=== PATIENT | male | born 1945 | race Caucasian/White ===

== ENCOUNTER 2018-12-27 10:35 | Outpatient (CLI) | payer MEDICARE, OTHER, SELFPAY ==
--- NOTE | 2018-12-27 11:10 | DI.RAD_ITS ---
SYMPTOM/DIAGNOSIS: BILAT KNEE PAIN, M25.561 RIGHT KNEE: There is minimal spurring at the articular aspect of the patella. The femoral tibial joint spaces are well maintained. A small cyst is seen in the proximal fibula. IMPRESSION: Mild patellofemoral degenerative changes. LEFT KNEE: There is moderate narrowing of the lateral femoral tibial joint space and mild to moderate alexi-articular spurring. There is mild spurring at the articular aspect of the patella. Bone island is seen in the proximal tibia. IMPRESSION: Moderate degenerative changes of the lateral femoral tibial joint.
== END 2018-12-27 10:55 ==
LOC: NCHCO 10:41 → DI 10:43
PROVIDERS: PCP Family Medicine; Visit Provider Family Medicine
DX: M25.561 Pain in right knee (principal); M25.562 Pain in left knee; M17.0 Bilateral primary osteoarthritis of knee; M89.8X6 Other specified disorders of bone, lower leg
CPT/HCPCS: 73562

== ENCOUNTER 2019-03-09 10:01 | Outpatient (REF) | payer MEDICARE, OTHER, SELFPAY ==
[2019-03-09 13:19] LABS: Anion Gap 6.4 mmol/L (3-11); BUN 18 mg/dL (7-18); CO2 29.6 mmol/L (21.0-32.0); CREATININE 1.12 mg/dL (0.70-1.30); Calcium 9.2 mg/dL (8.5-10.1); Chloride 105 mmol/L (98-107); Glucose 90 mg/dL (70-100); Potassium 4.3 mmol/L (3.5-5.1); Sodium 141 mmol/L (136-145)
== END 2019-03-09 10:21 ==
LOC: NCHCN 10:01
PROVIDERS: PCP Family Medicine; Visit Provider Family Medicine
DX: I10 Essential (primary) hypertension (principal); R73.09 Other abnormal glucose
CPT/HCPCS: 80048

== ENCOUNTER → 2019-05-20 10:30 | Outpatient (BNVA) | payer MEDICARE, OTHER, SELFPAY | PROVIDERS: PCP Family Medicine; Referring Provider Family Medicine; Visit Provider Physical Therapy Assistant | DX: Z12.11 Encounter for screening for malignant neoplasm of colon (principal); Z86.010 Personal history of colon polyps ==

== ENCOUNTER 2019-06-03 11:09 | Day surgery (SDC) | payer MEDICARE, OTHER, SELFPAY ==
[2019-06-03 11:24] VITALS: BP 109/73; PULSE 66; RESP 18; TEMP 36.5; O2SAT 98
[2019-06-03] MEDS: Lactated Ringers 1,000 ML 80 ML IV (11:36)
--- NOTE | 2019-06-03 12:24 | W.PM.DSUDISC ---
Discharge Plan Disposition Patient Disposition: HOME Condition: Good Discharge Details Attending Provider: Ernestina Hopson Primary Care Provider: Otto Lopez Home Meds and New Rx's Prescriptions: Continued enalapril maleate 20 mg tablet 20 mg PO BID RF: 0 atorvastatin 40 mg tablet 40 mg PO QHS RF: 0 amlodipine 10 mg tablet 10 mg PO DAILY RF: 0 furosemide 20 mg tablet 20 mg PO DAILY RF: 0 Discontinued polyethylene glycol 3350 17 gram/dose powder 238 g PO ONCE Qty: 238 RF: 0 bisacodyl [Dulcolax (bisacodyl)] 5 mg tablet,delayed release (DR/EC) 5 mg PO ONCE Qty: 4 RF: 0 Discharge Instructions Additional Instructions: Your colonoscopy showed diverticulosis. Make sure to take in 30gm of fiber a day. No polyps were found. Plan for a colonoscopy in 5 years due a history of polyps on your prior scope. Stand Alone Forms: Colonoscopy Post Instructions, Diego Jones (DSU) Activity:: Activity as Tolerated Diet:: As Tolerated Discharge Orders Discharge Orders: Discharge Order (Routine); Ordered 06/03/19 Ordered By: Ernestina Hopson DS: Diagnosis Discharge Diagnosis (1) Diverticulosis: Status: Acute
[2019-06-03 13:00] VITALS: BP 93/67; PULSE 72; RESP 18; TEMP 36; O2SAT 95
--- NOTE | 2019-06-03 13:03 | COLE_ITS ---
DATE OF PROCEDURE: June 03, 2019 PREOPERATIVE DIAGNOSIS: History of colon polyps. POSTOPERATIVE DIAGNOSIS: Diverticulosis. PROCEDURE: Colonoscopy. SURGEON: Ernestina Hopson M.D. ANESTHESIA: General. INDICATIONS: This is a 73-year-old man whose colonoscopy three years ago showed polyps. He is asymp tomatic and has no family history of colon cancer. PROCEDURE: He was placed in the left Perez' position. Propofol was titrated to sedation. Digital re ctal examination revealed no abnormalities. The scope was advanced to the cecum with a small amount of abdominal pressure required. The ileocecal valve and appendiceal orifice were clearly identified. The scope was slowly withdrawn with no abnormalities seen within the ascending, transverse, descend ing, sigmoid colon or colon, including on retroflex view, with the exception of diverticulosis noted throughout the colon. He tolerated the procedure well and was stable to recovery. He will need a c olonoscopy again in five years due to his history of polyps. cc: Otto Lopez M.D.
== END 2019-06-03 13:22 | disposition home or self-care (01) ==
PROVIDERS: PCP Family Medicine; Visit Provider Surgery
PROC: 0DJD8ZZ Inspection of Lower Intestinal Tract, Via Natural or Artificial Opening Endoscopic (ICD-10-PCS; CPT 45378; principal; 2019-06-03 12:15)
DX: Z12.11 Encounter for screening for malignant neoplasm of colon (principal); K57.30 Diverticulosis of large intestine without perforation or abscess without bleeding; Z86.010 Personal history of colon polyps; I10 Essential (primary) hypertension
CPT/HCPCS: G0121

== ENCOUNTER 2019-12-27 12:38 | Outpatient (REF) | payer MEDICARE, OTHER, SELFPAY ==
[2019-12-27 14:56] LABS: Anion Gap 6.4 mmol/L (3-11); BUN 18 mg/dL (7-18); CO2 31.6 mmol/L (21.0-32.0); CREATININE 1.05 mg/dL (0.70-1.30); Calcium 9.1 mg/dL (8.5-10.1); Chloride 104 mmol/L (98-107); Glucose 104 mg/dL (74-106); Sodium 142 mmol/L (136-145)
[2019-12-27 15:11] LABS: Hemoglobin A1C 5.7 % (3.8-5.6)
[2019-12-28 12:35] LABS: PSA, Diagnostic 3.4 ng/mL (0.0-6.5)
== END 2019-12-27 12:58 ==
LOC: NCHCN 12:38
PROVIDERS: PCP Family Medicine; Visit Provider Family Medicine
DX: R73.09 Other abnormal glucose (principal); N40.1 Benign prostatic hyperplasia with lower urinary tract symptoms; R39.2 Extrarenal uremia; R39.9 Unspecified symptoms and signs involving the genitourinary system
CPT/HCPCS: 80048; 83036; 84153

== ENCOUNTER 2020-08-21 01:23 | Outpatient (CLI) | payer MEDICARE, OTHER, SELFPAY ==
[2020-08-21 14:52] LABS: BUN 24 mg/dL (7-18); Chloride 104 mmol/L (98-107); Estimated GFR 48.09 (mL/min/1.73m2); Glucose 94 mg/dL (74-106); Potassium 4.5 mmol/L (3.5-5.1); Sodium 140 mmol/L (136-145)
[2020-08-21 14:58] LABS: CREATININE 1.44 mg/dL (0.70-1.30)
[2020-08-21 14:59] LABS: Hemoglobin A1C 5.6 % (<5.7)
--- NOTE | 2020-08-21 15:15 | DI.MRI_ITS ---
EXAM: MR ORBIT FACIAL NECK WO/W CLINICAL HISTORY: NEUROPATHIC TYPE PAIN,? LESION RT MANDIBLE,R51,R68.84 TECHNIQUE: Multiplanar multisequence MRI was performed. CONTRAST MATERIAL: IV Contrast: 18 mL of Magnevist contrast administered. COMPARISON: No exams were available for comparison FINDINGS: ORBITS: The anterior and posterior chambers of the globes are intact. The retrobulbar fat is unremark able. Extraocular muscles are unremarkable. OPTIC NERVES: The intracranial and extracranial portions of the optic nerves are within normal limits . Optic chiasm is within normal limits. No MRI evidence of optic neuritis identified.. No abnormality is noted in the mandible. Degenerative changes are seen in the cervical spine. Parotids/submandibular/thyroid gland: Normal. Lymphadenopathy: None. Soft tissues: The floor the mouth is unremarkable. The epiglottis and vocal cords are within normal limits. The visualized portions of the brain show no abnormal enhancement. There is mild atrophy and scatter ed high signal foci in the white matter consistent with small vessel disease. IMPRESSION: No abnormality is identified in the mandible. DATA REPOSITORY:
[2020-08-21] MEDS: Gadoterate meglumine 20 ML VIAL 18 ML IVP (15:29)
[2020-08-21 23:04] LABS: PSA, Diagnostic 3.4 ng/mL (0.0-6.5)
== END 2020-08-21 01:43 ==
PROVIDERS: PCP Family Medicine; Visit Provider Otolaryngology Otolaryngology/Facial Plastic Surgery
DX: R73.09 Other abnormal glucose (principal); R39.9 Unspecified symptoms and signs involving the genitourinary system; I10 Essential (primary) hypertension; Z13.89 Encounter for screening for other disorder; R51 Headache; R68.84 Jaw pain
CPT/HCPCS: 80048; 70543; 83036; 84153

== ENCOUNTER 2020-09-18 13:02 | Outpatient (REF) | payer MEDICARE, OTHER, SELFPAY ==
[2020-09-18 18:42] LABS: Anion Gap 5.7 mmol/L (3-11); BUN 13 mg/dL (7-18); CO2 32.3 mmol/L (21.0-32.0); Calcium 9.4 mg/dL (8.5-10.1); Chloride 104 mmol/L (98-107); Glucose 103 mg/dL (74-106); Potassium 4.5 mmol/L (3.5-5.1); Sodium 142 mmol/L (136-145)
== END 2020-09-18 13:22 ==
LOC: NCHCN 13:02
PROVIDERS: PCP Family Medicine; Visit Provider Family Medicine
DX: N28.9 Disorder of kidney and ureter, unspecified (principal)
CPT/HCPCS: 80048

== ENCOUNTER 2021-08-22 11:39 | Emergency (ER) | payer MEDICARE, OTHER, SELFPAY ==
--- NOTE | 2021-08-22 11:30 | RT.EKG_ITS ---
APPROVED REPORT Exam: Resting ECG Reason for Exam: chest pain Patient Location: E HR:48 bpm ECG Measurements Heart Rate 48 AXIS DE 201 P 66 QRSd 108 QRS -5 QT 456 T 24 QTc 410 Conclusion Sinus bradycardia...rate< 60
--- NOTE | 2021-08-22 11:52 | ED.GENADUL_ITS ---
Discharge Plan Disposition Patient Disposition: HOME Condition: Stable Discharge Details Clinical Impression: Foot pain, right, Chest pain, Elevated lipase Primary Care Provider: Otto Lopez ED Provider: Edison Mcdonald Home Meds and New Rx's Prescriptions: Continued enalapril maleate 20 mg tablet 20 mg PO BID RF: 0 atorvastatin 40 mg tablet 40 mg PO QHS RF: 0 amlodipine 10 mg tablet 10 mg PO DAILY RF: 0 furosemide 20 mg tablet 20 mg PO DAILY RF: 0 Discharge Instructions Additional Instructions: your blood work and ekg did not show any concerning findings related to your heart at this time your cat scan showed a small lung nodule which you likely have had for years, but you should let your primary care provider know of this when you follow up with them as you will likely need to have imaging in the future to monitor this you had a mild increase in your lipase which measures pancreas inflammation, sometimes alcohol can cause this if you feel more ill, have worsening pain or persistent vomit return to the emergency department Medical Decision Making 75 yo male with hx of htn, hld, who comes in with 3 weeks of intermittent left sided chest pain, states he last had the pain 5 days ago and denies pain now. He states the pain will last a few minutes when he gets it, is not worsened or brought on my exertion, and denies radiation of pain. He also notes some shortness of breath, cough and feels congested, denies fevers. He is in no distress on exam speaking in full sentences. HE has no chest wall or abdominal tenderness, clear lungs, no jvd, no calf tenderness, no pitting edema. Symptoms seem atypical for acs, ekg shows sinus bradycardia no acute ischemic findings. Will obtain troponin. Given his cough/shortness of breath along with the pain will obtain cta to evaluate for pe and pneumonia vs pneumothorax. No tearing back pain so doubt dissection. He also notes he has had a painful area on his right plantar foot, denies known trauma but he states it feels as though there is a piece of glass in his foot as it is sharp.He has a 0.5cm flat black area on mid plantar surface with no breaks in the skin and is consistent with likely benign nevus but will xray to evaluate for other pathology. No palpable foreign body on exam labs unremarkable other than mildly increase lipase level, he has a glass of wine daily not a heavy drinker. CT abdomen obtained with cta chest and no acute findings on either, no obvious pancreatitis on imaging per Dr. Huffman. Pt still feels well now, no pain and no distress. Given over 24 hours without chest pain do not feel repeat troponin indicated. Discussed with patient and he is comfortable for d/c and f/u with his pcp, return precautions given Differential Diagnosis Differential Diagnosis: chest wall pain, covid, pe Medical Records Medical records reviewed: Yes I reviewed the patient's medical records. Imaging Data Radiologic Study: Attestation: I personally reviewed and interpreted this imaging study as follows: Imaging: X-Ray My impression: no acute findings Radiologic Study #2: Attestation: I personally reviewed and interpreted this imaging study as follows: Imaging: CT Scan Radiologist's impression: no acute findings on imaging, has a lung nodule per verbal report from Dr. Huffman Lab Data Lab results reviewed: Yes I reviewed the patient's lab results. ECG Data Attestation: I personally reviewed and interpreted this ECG (s) as follows: Prior ECG tracings: not available for review Interpretation: sinus bradycardia, rate of 48, no acute st t wave ischemic findings HPI General Mode of arrival: ambulatory . Date/Time Provider Initiated Documentation: 08/22/21 11:40 . Limitations to Documentation: no limitations . Information obtained by: patient . History of Present Illness 75 year old M presents to the emergency department with the chief complaint of chest pain, described as moderate, Quality is described as aching, and is localized to the chest and left. Patient reports no radiation. Patient started experiencing this week(s) (3) and it has been now resolved. No relieving factors improve symptom(s), Patient notes cough. Patient did receive the following treatments prior to arrival, none Related Data Home Medications Medication Instructions Recorded Confirmed amlodipine 10 mg tablet 10 mg PO DAILY 04/15/19 08/22/21 atorvastatin 40 mg tablet 40 mg PO QHS 04/15/19 08/22/21 enalapril maleate 20 mg tablet 20 mg PO BID 04/15/19 08/22/21 furosemide 20 mg tablet 20 mg PO DAILY 04/15/19 08/22/21 Allergies Allergy/AdvReac Type Severity Reaction Status Date / Time No Known Allergies Allergy Verified 08/22/21 11:47 General Stated Complaint: Chest Pain ASHUTOSH: 2 Review of Systems All systems reviewed & are unremarkable except as noted in HPI and below Constitutional Constitutional: Denies chills, Denies fever(s) and Denies weakness Gastrointestinal Gastrointestinal: Denies abdominal pain, Denies nausea and Denies vomiting Musculoskeletal Musculoskeletal: Denies joint swelling Neurologic Neurologic: Denies weakness [facility] Medical History (Updated 08/22/21 @ 13:49 by Edison Mcdonald MD) Heart murmur, systolic Hyperlipidemia Hypertension Prediabetes Tubular adenoma of colon Surgical History History of colonoscopy Family History (Updated 06/03/19 @ 11:24 by Kenna Covarrubias) Other Crohn disease Social History (Updated 05/20/19 @ 11:05 by HAYLIE Chauhan) Smoking/Tobacco Use Status: Former Tobacco Use Smoking risk assessment performed?: Yes Alcohol Intake: current Alcohol Intake frequency: a few times a week Drug use: Never Substance use type: does not use Details: quit smoking 1985 Do you feel safe at home: Yes Do you feel safe in your relationship?: Yes Exam Const General: no acute distress Orientation: alert HENMT Head: normal to inspection Ears: external ears normal General nose exam: external nose normal Mouth: moist mucous membranes Eyes General: appearance normal, both eyes and all related structures Neck Neck: normal visual inspection Chest Chest: normal palpation of entire chest wall and no crepitus Resp Effort & Inspection: normal respiratory effort and able to speak in complete sentences Cardio Rate: regular rate GI Palpation: soft and nontender Skin General skin exam: no rashes or lesions noted Neuro General: patient alert and patient oriented x3 Extrem General: normal to inspection Psych Mental Status: mental status grossly normal Course Vital Signs Vital signs: Temperature Source Skin 08/22/21 11:42 Oxygen Delivery Method Room Air 08/22/21 11:42 Oxygen Flow Rate 0 08/22/21 11:42 Pain Level 0 08/22/21 11:42 Comment 08/22/21 11:42
[2021-08-22 11:54] VITALS: RESP 13
[2021-08-22] MEDS: Normal Saline Flush 10 ML SYR IVP (11:55)
--- NOTE | 2021-08-22 12:00 | DI.RAD_ITS ---
Exam(s) XR FOOT RT COMPLETE EXAM: XR FOOT RT COMPLETE CLINICAL HISTORY: ? foreign body. TECHNIQUE: 2D digital imaging was performed of the right foot. Images were obtained. AP, oblique and lateral views were obtained. COMPARISON: No exams were available for comparison FINDINGS: BONES: No acute fracture is present. No bony destructive lesion is seen. There is a small plantar km caneal spur there is an enthesophyte at the Achilles insertion site. JOINTS: No dislocation present. Mild hypertrophic changes are seen at the 1st metatarsophalangeal joel nt with a spur at the dorsal aspect of the 1st metatarsal head. Hammertoe deformities are seen at th e 2nd through 5th toes. SOFT TISSUE: Normal. No definite foreign bodies are seen in the soft tissues. IMPRESSION: 1. No foreign bodies are identified. 2. Results of this exam have been verbally communicated with provider. DATA REPOSITORY: RADIATION DOSE DELIVERED:
[2021-08-22 12:04] LABS: Eosinophils % 1.5; HCT 46.2 % (40.0-50.0); HGB 14.9 g/dL (13.5-17.5); Lymphocytes % 17.8; MCH 28.4 pg (27.0-33.0); MCHC 32.3 % (32.0-36.0); MCV 88.2 fL (80-95); MPV 12.5 fL (8.0-11.0); Monocytes % 8.5; Neutrophils % 71.4; Platelet Count 184 10^3/uL (130-400); RBC 5.24 10^6/uL (4.36-5.78); RDW 13.3 % (11.8-14.1); RDW-SD 43.4 fL; WBC 7.37 10^3/uL (4.4-10.8)
[2021-08-22 12:05] LABS: Abs Immature Grans 0.02 10^3/uL (0.0-0.06); Absolute Basophil Count 0.04 10^3/uL (0.0-0.2); Absolute Eosinophil Count 0.11 10^3/uL (0.0-0.7); Absolute Lymphocyte Count 1.31 10^3/uL (1.2-3.4); Absolute Monocyte Count 0.63 10^3/uL (0.1-0.8); Absolute Neutrophil Count 5.26 10^3/uL (1.2-6.7); Basophils % 0.5; Immature Grans % 0.3; Nucleated RBC 0 %
[2021-08-22 12:22] LABS: ALT 41 U/L (16-63); AST 24 U/L (15-37); Alkaline Phosphatase 78 U/L (46-116); BUN 14 mg/dL (7-18); Bilirubin, Direct 0.2 mg/dL (0.0-0.2); Bilirubin, Total 0.7 mg/dL (0.2-1.0); Calcium 8.9 mg/dL (8.5-10.1); Chloride 105 mmol/L (98-107); Glucose 106 mg/dL (74-106); Potassium 3.8 mmol/L (3.5-5.1); Sodium 142 mmol/L (136-145); Total Protein 7.7 g/dL (6.4-8.2); Troponin I < 0.05 ng/mL (<0.06)
[2021-08-22 12:31] LABS: Lipase 642 U/L (73-393); Magnesium 2.3 mg/dL (1.8-2.4); NT-proBNP 109 pg/mL (<300)
[2021-08-22] MEDS: Normal Saline - Diluent 50 ML VIAL IV (12:51)
[2021-08-22] MEDS: Omnipaque 350 MG/ML 100 ML BTL IJ (12:52)
--- NOTE | 2021-08-22 13:14 | DI.CT_ITS ---
Exam(s) CT CHEST PE ABD PELVIS W EXAM: CT CHEST PE ABD PELVIS W CLINICAL HISTORY: shortness of breath, pain, elevated lipase. TECHNIQUE: Imaging Protocol: Axial CT angiography was performed with multi-slice acquisition and mu lti-planar and/or 3D reconstructions. CONTRAST MATERIAL: Intravenous: Omnipaque 350 Contrast volume:100 mL COMPARISON: No exams were available for comparison FINDINGS: CHEST: Pulmonary Arteries: No evidence of filling defect to suggest pulmonary emboli. Tracheobronchial tree: Patent where visualized. Mediastinum and Rachel: No dominant adenopathy or fluid collection. Pulmonary parenchyma: No consolidation or dominant measurable mass. No architectural distortion. Ther e is an 8 mm noncalcified pulmonary nodule in the right upper lobe laterally. There is dependent ate lectasis. Pleura: No effusion or pneumothorax. Heart: The heart is not dilated. Mild coronary artery calcifications. No evidence of pericardial eff usion. Aorta: Thoracic aorta non-dilated. No evidence of dissection. Atherosclerosis. Bones: Within normal limits for the patient's age. Soft tissues: Unremarkable. Thyroid gland: Unremarkable. ABDOMEN: Liver: Normal density. There are cysts seen in the liver. The largest measures 1.1 cm. Portal, Superior Mesenteric, and Splenic Veins: Unremarkable. Gallbladder and Biliary Tract: No radiodense calculus or dilation. Pancreas: Normal density, no abnormal calcifications or inflammatory process. Spleen: Normal. Adrenals: No masses seen. Kidneys: Normal size, contour and axis. No radiodense stones or obstructive uropathy. No masses seen. Abdominal Aorta: Abdominal portion non-dilated. Atherosclerosis. Bowel: No obstruction or bowel wall thickening. Appendix is unremarkable. There is diffuse diverticul osis but no evidence of acute diverticulitis. Peritoneal Cavity: No ascites, collection or mesenteric inflammatory response. No free air. Lymph Nodes: Within normal limits. Bones: Within normal limits for the patient's age. Soft Tissues: Unremarkable. PELVIS: Bladder: Symmetric distention, no gross wall thickening. Reproductive Organs: There is marked prostatic enlargement. Lymph Nodes: Within normal limits. Bones: Within normal limits. IMPRESSION: 1. No evidence pulmonary embolism, thoracic aortic dissection or aneurysm. 2. No acute pulmonary process. 3. There is an 8 mm right upper lobe pulmonary nodule. In high risk patients (history of smoking or other risk factors), a follow-up CT scan of the chest in 3-6 months is recommended. 4. No acute abdominal or pelvic process. 5. No radiographic evidence to suggest acute pancreatitis. Please correlate clinically. 6. Results of this exam have been verbally communicated with provider. RADIATION DOSE DELIVERED: 1,175.04mGy.cm Total DLP DATA REPOSITORY: All CT scans at this facility are submitted to the National Radiology Data Registry (NRDR) Dose Index Registry (DIR) with the [employer] (ACR). RADIATION OPTIMIZATION: All CT scans at this facility use at least one of these dose optimization te chniques: automated exposure control; mA and/or kV adjustment per patient size (includes targeted exa ms where dose is matched to clinical indication); or iterative reconstruction.
[2021-08-22 13:44] LABS: Source Nasal/Nares
[2021-08-22 14:11] VITALS: BP 146/80; PULSE 69; RESP 14; TEMP 36.7; O2SAT 99
[2021-08-22 14:13] VITALS: BP 146/80; PULSE 69; RESP 14; TEMP 36.7; O2SAT 99
[2021-08-22 14:57] LABS: COVID-19 PCR Negative (Negative)
--- NOTE | 2021-08-23 08:54 | NUR.NOTE ---
Nursing Note: pt contacted and notified of negative COVID results.
== END 2021-08-22 15:12 | disposition home or self-care (01) ==
PROVIDERS: Emergency Provider Emergency Medicine; PCP Family Medicine
DX: R07.89 Other chest pain (principal); M79.671 Pain in right foot; R06.02 Shortness of breath
CPT/HCPCS: 36415; 71275; 74177; 80053; 83690; 87635; 93005; 99285; 73630; 82248; 83735; 83880; 84484; 85025; 93010; 99284; J3490

== ENCOUNTER 2021-11-05 14:05 | Outpatient (REF) | payer MEDICARE, OTHER, SELFPAY ==
[2021-11-05 15:30] LABS: HCT 47.1 % (40.0-50.0); HGB 15.2 g/dL (13.5-17.5); MCH 28.3 pg (27.0-33.0); MCHC 32.3 % (32.0-36.0); MCV 87.5 fL (80-95); Platelet Count 181 10^3/uL (130-400); RBC 5.38 10^6/uL (4.36-5.78); RDW 13.3 % (11.8-14.1); RDW-SD 42.7 fL; WBC 7.93 10^3/uL (4.4-10.8)
== END 2021-11-05 14:06 | disposition home or self-care (01) ==
LOC: LBN 14:05
PROVIDERS: PCP Family Medicine; Visit Provider Family Medicine
DX: K92.1 Melena (principal)
CPT/HCPCS: 85027

== ENCOUNTER 2022-09-30 11:39 | Outpatient (REF) | payer MEDICARE, OTHER, SELFPAY ==
[2022-09-30 16:19] LABS: Hemoglobin A1C 5.6 % (<5.7)
[2022-09-30 16:20] LABS: Anion Gap 7.8 mmol/L (3-11); BUN 25 mg/dL (7-18); CO2 29.2 mmol/L (21.0-32.0); CREATININE 1.1 mg/dL (0.70-1.30); Chloride 104 mmol/L (98-107); Estimated GFR 69.57 (mL/min/1.73m2); Glucose 110 mg/dL (74-106); Magnesium 2.2 mg/dL (1.8-2.4); Potassium 4.1 mmol/L (3.5-5.1); Sodium 141 mmol/L (136-145)
[2022-10-02 09:40] LABS: Hepatitis C Ab w Rflx HCV PCR Negative (Negative)
== END 2022-09-30 11:40 | disposition home or self-care (01) ==
LOC: NCHCN 11:39
PROVIDERS: PCP Family Medicine; Visit Provider Family Medicine
DX: R73.03 Prediabetes (principal); I10 Essential (primary) hypertension; Z11.59 Encounter for screening for other viral diseases; Z00.00 Encounter for general adult medical examination without abnormal findings
CPT/HCPCS: 80048; 86803; 83036; 83735

== ENCOUNTER → 2022-10-15 01:27 | Outpatient (CLI) | payer MEDICARE, OTHER, SELFPAY ==
--- NOTE | 2022-10-15 08:05 | DI.CT_ITS ---
Exam(s) CT CHEST WO EXAM: CT CHEST WO CLINICAL HISTORY: F/U 8 MM LUNG NODULE ON 07/2021 CT. TECHNIQUE: Imaging protocol: Axial computed tomography images were obtained and coronal and sagittal reformatted images were created and reviewed. COMPARISON: CT CT CHEST PE ABD PELVIS W from 08/22/2021 FINDINGS: Tracheobronchial tree: Patent where visualized. Pulmonary parenchyma: There is no focal consolidation. The 0.8 cm pulmonary nodule in the right uppe r lobe is unchanged. No new pulmonary nodules are present. There is mild bilateral apical scarring. Mediastinum and Rachel: No dominant adenopathy or fluid collection. The esophagus is unremarkable. Thyroid gland: Unremarkable. Pleura: No effusion or pneumothorax. Heart: The heart is not dilated. Mild coronary artery calcification is present. No pericardial effus ion. Aorta: The ascending thoracic aorta measures 4.2 x 4.3 cm. Atherosclerosis is present. Upper abdomen: Unremarkable. Lymph nodes: Within normal limits. Soft tissues: Unremarkable. Bones:Within normal limits for the patient's age. IMPRESSION: Stable pulmonary nodule. A follow-up CT scan of the chest in 6 to 12 months is recommended for re-ev aluation. RADIATION DOSE DELIVERED: Total DLP Total DLP DATA REPOSITORY: All CT scans at this facility are submitted to the National Radiology Data Registry (NRDR) Dose Index Registry (DIR) with the [employer] (ACR). RADIATION OPTIMIZATION: All CT scans at this facility use at least one of these dose optimization te chniques: automated exposure control; mA and/or kV adjustment per patient size (includes targeted exa ms where dose is matched to clinical indication); or iterative reconstruction.
== END ==
PROVIDERS: PCP Family Medicine; Visit Provider Family Medicine
DX: R91.1 Solitary pulmonary nodule (principal); J98.4 Other disorders of lung
CPT/HCPCS: 71250

== ENCOUNTER 2023-03-02 11:49 | Outpatient (REF) | payer MEDICARE, OTHER, SELFPAY ==
[2023-03-02 14:27] LABS: Abs Immature Grans 0.01 10^3/uL (0.0-0.06); Absolute Basophil Count 0.06 10^3/uL (0.0-0.2); Absolute Eosinophil Count 0.15 10^3/uL (0.0-0.7); Absolute Lymphocyte Count 1.36 10^3/uL (1.2-3.4); Absolute Monocyte Count 0.48 10^3/uL (0.1-0.8); Absolute Neutrophil Count 4.83 10^3/uL (1.2-6.7); Basophils % 0.9; Eosinophils % 2.2; HCT 49.1 % (40.0-50.0); HGB 16.4 g/dL (13.5-17.5); Immature Grans % 0.1; Lymphocytes % 19.7; MCHC 33.4 % (32.0-36.0); MCV 87 fL (80-95); Neutrophils % 70.1; Platelet Count 186 10^3/uL (130-400); RBC 5.65 10^6/uL (4.36-5.78); RDW 13.2 % (11.8-14.1); RDW-SD 42.4 fL; WBC 6.89 10^3/uL (4.4-10.8)
[2023-03-02 14:56] LABS: ALT 35 U/L (16-63); AST 21 U/L (15-37); Albumin 3.8 g/dL (3.4-5.0); Alkaline Phosphatase 73 U/L (46-116); Anion Gap 6.3 mmol/L (3-11); BUN 15 mg/dL (7-18); Bilirubin, Total 0.6 mg/dL (0.2-1.0); CO2 30.7 mmol/L (21.0-32.0); CREATININE 1.1 mg/dL (0.70-1.30); Calcium 9.2 mg/dL (8.5-10.1); Chloride 103 mmol/L (98-107); Estimated GFR 69.57 (mL/min/1.73m2); Glucose 119 mg/dL (74-106); Potassium 4.2 mmol/L (3.5-5.1); Sodium 140 mmol/L (136-145); TSH (W/Ref FT4) 1.82 uIU/mL (0.36-3.74); Total Protein 6.9 g/dL (6.4-8.2)
== END 2023-03-02 11:50 | disposition home or self-care (01) ==
LOC: NCHCN 11:49
PROVIDERS: PCP Family Medicine; Visit Provider Family Medicine
DX: I10 Essential (primary) hypertension (principal); R42 Dizziness and giddiness; N40.1 Benign prostatic hyperplasia with lower urinary tract symptoms
CPT/HCPCS: 80053; 84153; 84443; 85025

== ENCOUNTER → 2023-09-22 01:20 | Outpatient (CLI) | payer MEDICARE, OTHER, SELFPAY ==
--- NOTE | 2023-09-22 | DI.CT_ITS ---
Exam(s) CT CHEST WO EXAM: CT CHEST WO CLINICAL HISTORY: F/U 8 MM LUNG NODULE, R91.8, LAST IMAGED 10/14. TECHNIQUE: Imaging protocol: Axial computed tomography images were obtained and coronal and sagittal reformatted images were created and reviewed. COMPARISON: CT CT CHEST WO from 10/15/2022 FINDINGS: Tracheobronchial tree: Patent where visualized. Pulmonary parenchyma: No consolidation or dominant measurable mass. No architectural distortion. Ther e has been no change in size of the 8 mm nodule in the right lung apex. There is biapical scarring, right greater than left. No new pulmonary nodules are seen. No focal consolidating infiltrates are present. Mediastinum and Rachel: No dominant adenopathy or fluid collection. The esophagus is unremarkable. Thyroid gland: Unremarkable. Pleura: No effusion or pneumothorax. Heart: The heart is not dilated. Coronary artery calcification is present. No pericardial effusion. Aorta: The ascending thoracic aorta measures 4.3 x 4.4 cm. Atherosclerosis. Upper abdomen: There is a stable hepatic cyst. Lymph nodes: Within normal limits. Soft tissues: Unremarkable. Bones:Within normal limits for the patient's age. Stable sclerotic focus in the transverse process o f a mid thoracic vertebral body. IMPRESSION: Stable right pulmonary nodule. No new pulmonary nodules. Follow-up CT scan of the chest in 6-12 mon ths is recommended for re-evaluation. RADIATION DOSE DELIVERED: Total DLP Total DLP DATA REPOSITORY: All CT scans at this facility are submitted to the National Radiology Data Registry (NRDR) Dose Index Registry (DIR) with the [employer] (ACR). RADIATION OPTIMIZATION: All CT scans at this facility use at least one of these dose optimization te chniques: automated exposure control; mA and/or kV adjustment per patient size (includes targeted exa ms where dose is matched to clinical indication); or iterative reconstruction.
== END ==
PROVIDERS: PCP Family Medicine; Visit Provider Family Medicine
DX: R91.8 Other nonspecific abnormal finding of lung field (principal)
CPT/HCPCS: 71250

== ENCOUNTER 2023-09-22 12:06 | Outpatient (REF) | payer MEDICARE, OTHER, SELFPAY ==
[2023-09-22 22:33] LABS: PSA, Diagnostic 4.4 ng/mL (<=6.5)
== END 2023-09-22 12:07 | disposition home or self-care (01) ==
LOC: NCHCN 12:06
PROVIDERS: Visit Provider Family Medicine
DX: R19.7 Diarrhea, unspecified (principal); N40.1 Benign prostatic hyperplasia with lower urinary tract symptoms
CPT/HCPCS: 87329; 82272; 83993; 84153

== ENCOUNTER 2023-09-23 13:32 | Outpatient (REF) | payer MEDICARE, OTHER, SELFPAY ==
[2023-09-25 21:07] LABS: Calprotectin <50.0 mcg/g
== END 2023-09-23 13:33 | disposition home or self-care (01) ==
LOC: NCHCN 13:32
PROVIDERS: PCP Family Medicine; Visit Provider Family Medicine
DX: R19.7 Diarrhea, unspecified (principal)
CPT/HCPCS: 83993

== ENCOUNTER → 2023-10-20 09:03 | Outpatient (BNVA) | payer MEDICARE, OTHER, SELFPAY | PROVIDERS: PCP Family Medicine; Referring Provider Family Medicine; Visit Provider Urology | DX: N40.1 Benign prostatic hyperplasia with lower urinary tract symptoms (principal); N13.8 Other obstructive and reflux uropathy | CPT/HCPCS: 51798; 81003; 99215 ==

== ENCOUNTER → 2023-12-16 12:26 | Outpatient (BNVA) | payer MEDICARE, OTHER, SELFPAY | PROVIDERS: PCP Family Medicine; Referring Provider Family Medicine; Visit Provider Nurse Practitioner Gerontology | DX: N40.1 Benign prostatic hyperplasia with lower urinary tract symptoms (principal); N13.8 Other obstructive and reflux uropathy; R33.8 Other retention of urine | CPT/HCPCS: 99213 ==

== ENCOUNTER 2023-12-22 11:35 | Outpatient (CLI) | payer MEDICARE, OTHER, SELFPAY | END 2023-12-22 11:36 | disposition home or self-care (01) | LOC: ORDER INT 12:25 | PROVIDERS: PCP Family Medicine; Referring Provider Family Medicine; Visit Provider Urology | DX: N13.8 Other obstructive and reflux uropathy (principal); N40.1 Benign prostatic hyperplasia with lower urinary tract symptoms; R33.8 Other retention of urine | CPT/HCPCS: 76857; 81003; 99214 ==

== ENCOUNTER 2023-12-24 09:15 | Emergency (ER) | payer MEDICARE, OTHER, SELFPAY ==
[2023-12-24 09:20] VITALS: BP 142/93; PULSE 105; RESP 17; TEMP 37.1; O2SAT 97
[2023-12-24 09:25] VITALS: BP 142/93; PULSE 105; RESP 17; TEMP 37.1; O2SAT 97
[2023-12-24] MEDS: Lidocaine 2% Jelly 6 ML SYR (09:58)
[2023-12-24 10:10] LABS: Bilirubin Negative (Negative); Blood Large (Negative); Clarity Clear (Clear); Glucose Negative (Negative); Ketones Negative (Negative); Leukocyte Esterase Negative (Negative); Nitrite Negative (Negative); Urobilinogen 0.2 mg/dL (Up to 0.2)
[2023-12-24 10:18] LABS: Bacteria Negative HPF (Negative); C & S Indicated? No; Casts 0-2 Hyaline LPF (Negative); Crystals Negative HPF (Negative); Epithelial Cells Rare HPF (Negative); Mucus Negative (Negative); Other Cells Rare Renal (Negative); RBC >50 HPF (0-2); WBC 0-2 HPF (0-5)
--- NOTE | 2023-12-24 10:30 | RT.EKG_ITS ---
APPROVED REPORT Exam: Resting ECG Reason for Exam: irregular rhythm Patient Location: E HR:86 bpm ECG Measurements Heart Rate 86 AXIS KS [id number] P [id number] QRSd 99 QRS -5 QT 341 T 4 QTc 408 Conclusion Atrial fibrillation...V-rate 66-105, irreg A-activity
--- NOTE | 2023-12-24 10:46 | W.ED.GENAD ---
HPI General Mode of arrival: ambulatory. Date/Time Provider Initiated Documentation: 12/24/23 09:40. Limitations to Documentation: no limitations. Information obtained by: patient. HPI Narrative: 78-year-old male here with chief complaint of urinary retention. Patient notes he had Bowden catheter placed for urinary retention secondary to prostatic enlargement that was removed 3 days ago. He states initially was able to urinate but now unable to urinate today. Patient notes generally not feeling well over the past few months with some intermittent loose stools. No chest pain or shortness of breath. No abdominal pain. Related Data Home Medications Medication Instructions Recorded Confirmed amlodipine 10 mg tablet 10 mg PO DAILY 04/15/19 12/24/23 lisinopril 20 mg tablet 20 mg PO DAILY 09/29/23 12/24/23 furosemide 20 mg tablet 20 mg PO DAILY PRN 10/20/23 12/24/23 tamsulosin 0.4 mg capsule 0.8 mg (2 x 0.4 mg) PO DAILY #180 12/16/23 12/24/23 caps finasteride 5 mg tablet 5 mg PO DAILY #90 tabs 12/22/23 12/24/23 Previous Rx's Medication Instructions Recorded tamsulosin 0.4 mg capsule 0.8 mg (2 x 0.4 mg) PO DAILY #180 12/16/23 caps finasteride 5 mg tablet 5 mg PO DAILY #90 tabs 12/22/23 Allergies Allergy/AdvReac Type Severity Reaction Status Date / Time No Known Allergies Allergy Verified 12/24/23 09:25 General Stated Complaint: Urinary ASHUTOSH: 3 Review of Systems All systems reviewed & are unremarkable except as noted in HPI and below Constitutional Constitutional: Denies chills and Reports fever(s) (Subjective felt warm last night) Cardiovascular Cardiovascular: Denies chest pain Exam Const General: cooperative and no acute distress [facility] Mouth: moist mucous membranes Eyes Conjunctivae: normal conjunctivae Sclera: normal sclerae Neck Neck: trachea midline and supple Resp Auscultation: clear to auscultation bilaterally, no rales, no rhonchi and no wheezes Cardio Rate: regular rate Rhythm: abnormal rhythm irregularly irregular GI Palpation: soft, not firm, no guarding, no masses, not rigid and nontender Skin General skin exam: no rashes or lesions noted Neuro General: patient alert, patient awake, patient oriented x3 and tone normal Extrem General: no edema Psych Appearance: grossly normal Mental Status: mental status grossly normal Speech and Movement: speech and movement normal Course Vital Signs Vital signs: Vital Signs Temperature 37.1 C 12/24/23 09:20 Pulse 105 H 12/24/23 09:20 Respiratory Rate 17 12/24/23 09:20 Blood Pressure 142/93 H 12/24/23 09:20 Pulse Oximetry 97 12/24/23 09:20 Temperature 37.1 C 12/24/23 09:25 Temperature Source Temporal Artery Scan 12/24/23 09:25 Pulse 105 H 12/24/23 09:25 Respiratory Rate 17 12/24/23 09:25 Respiratory Effort Normal 12/24/23 09:23 Blood Pressure 142/93 H 12/24/23 09:25 Blood Pressure Position Sitting 12/24/23 09:25 Pulse Oximetry 97 12/24/23 09:25 Oxygen Delivery Method Room Air 12/24/23 09:25 Oxygen Flow Rate 0 12/24/23 09:25 Pain Level 7 12/24/23 09:28 Lab/Test Results Lab/Test Results: Laboratory Tests Range/Units 12/24/23 10:00 Urine Color (Yellow) [place] Urine Clarity (Clear) Clear Urine pH (5-8) 7.0 Ur Specific [place] (1.005-1.025) 1.010 Urine Protein (Negative) mg/dL Trace H Urine Ketones (Negative) mg/dL Negative Urine Blood (Negative) Large H Urine Nitrite (Negative) Negative Urine Bilirubin (Negative) Negative Urine Urobilinogen (Up to 0.2) mg/dL 0.2 Ur Leukocyte Esterase (Negative) Negative Urine RBC (0-2) HPF >50 H Urine WBC (0-5) HPF 0-2 Ur Epithelial Cells (Negative) HPF Rare Urine Crystals (Negative) HPF Negative Urine Bacteria (Negative) HPF Negative Urine Casts (Negative) LPF 0-2 Hyaline Urine Mucus (Negative) Negative Urine Other (Negative) Rare Renal Ur Culture Indicated? No Urine Glucose (Negative) mg/dL Negative Medical Decision Making 1126?78-year-old male with history of prostatic enlargement presents with recurrent urinary retention, 3 days status post Bowden catheter removal. Patient also notably not feeling well over the past few months with intermittent loose stool. Patient is hemodynamically stable. A Bowden catheter was placed by nursing without difficulty and patient had significant urinary output. I considered urinary tract infection. Patient did have subjective feeling of warmth last night. He does have a mild leukocytosis of 11,000. Urinalysis was reviewed and is not consistent with UTI. 0-2 WBCs. Negative bacteria. Negative nitrite. Greater than 50 RBCs likely secondary to Bowden catheter. The patient has an irregular rhythm on auscultation. I am concerned about atrial fibrillation. Patient has no history of cardiac arrhythmia. EKG was reviewed and interpreted by me: Please report, atrial fibrillation, 86 bpm. No rapid ventricular response. Plan to check electrolytes and thyroid function. 1235 --Labs reviewed and nondiagnostic. Plan for discharge with outpatient follow-up with his PCP as scheduled today at 1 PM. Usual customary discharge instructions were reviewed with the patient. I spoke with Dr. Lopez, the patient's primary care physician, discussed ED course, he will follow-up with the patient today as scheduled and plan to discuss anticoagulation and further outpatient diagnostics and treatment. 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 (Acute) Jaw pain (Acute) Diverticulosis (Acute) Medical History Hypertension Hyperlipidemia Heart murmur, systolic Tubular adenoma of colon Prediabetes Surgical History History of colonoscopy Family History Other Crohn disease Social History Smoking/Tobacco Use Status: Former Tobacco Use Smoking risk assessment performed?: Yes Alcohol Intake: current Alcohol Intake frequency: a few times a week Alcohol type: wine and hard liquor Drug use: Never Substance use type: does not use Details: quit smoking 1984 Housing: house Do you feel safe at home: Yes Do you feel safe in your relationship?: Yes PAWSS Have you Been Recently Intoxicated or Drunk Within the Last 30 days?: No Have you Ever Experienced Previous Episodes of Alcohol Withdrawal?: No Have you ever Experienced Withdrawal Seizures?: No Have you ever Experienced Delirium Tremens(DT)s?: No Have you ever undergone Alcohol Rehabilitation Treatment (i.e, inpt ot outpatient treatment programs)?: No Have you ever Experienced Blackouts?: No Have you ever Combined Alcohol with other Downers within the last 90 days?: No Have you ever Combined Alcohol with any other Substance of Abuse during the last 90 days?: No Result: 0 Discharge Plan Disposition Patient Disposition: Home Condition: Stable Discharge Details Clinical Impression: Atrial fibrillation, Acute urinary retention Primary Care Provider: Otto Lopez ED Provider: Yosef Ashby Home Meds and New Rx's Prescriptions: Continued amlodipine 10 mg tablet 10 mg PO DAILY furosemide 20 mg tablet 20 mg PO DAILY PRN tamsulosin 0.4 mg capsule 0.8 mg PO DAILY Qty: 180 4RF finasteride 5 mg tablet 5 mg PO DAILY Qty: 90 4RF lisinopril 20 mg tablet 20 mg PO DAILY Discharge Instructions Instructions: A-fib (Atrial Fibrillation) (ED), Urinary Retention in Men (ED) Additional Instructions: Please follow-up with your primary care physician today. Return to the ER immediately for any worsening or new concerning symptoms. Referrals: Otto Lopez [Primary Care Provider] -
[2023-12-24 11:05] LABS: Abs Immature Grans 0.04 10^3/uL (0.0-0.06); Absolute Basophil Count 0.06 10^3/uL (0.0-0.2); Absolute Eosinophil Count 0.07 10^3/uL (0.0-0.7); Absolute Lymphocyte Count 0.78 10^3/uL (1.2-3.4); Absolute Neutrophil Count 9.44 10^3/uL (1.2-6.7); Basophils % 0.5; Eosinophils % 0.6; HCT 42.4 % (40.0-50.0); HGB 14.3 g/dL (13.5-17.5); Immature Grans % 0.4; Lymphocytes % 6.9; MCH 29.2 pg (27.0-33.0); MCHC 33.7 % (32.0-36.0); MCV 87 fL (80-95); MPV 12.4 fL (8.0-11.0); Neutrophils % 83.6; Platelet Count 151 10^3/uL (130-400); RDW 13.2 % (11.8-14.1); RDW-SD 41.5 fL; WBC 11.29 10^3/uL (4.4-10.8)
[2023-12-24 11:31] LABS: ALT 38 U/L (16-63); AST 24 U/L (15-37); Albumin 2.9 g/dL (3.4-5.0); Alkaline Phosphatase 59 U/L (46-116); Anion Gap 5.2 mmol/L (3-11); BUN 14 mg/dL (7-18); Bilirubin, Total 0.6 mg/dL (0.2-1.0); CO2 29.8 mmol/L (21.0-32.0); CREATININE 1.1 mg/dL (0.70-1.30); Calcium 8.3 mg/dL (8.5-10.1); Chloride 102 mmol/L (98-107); Estimated GFR 69.14 (mL/min/1.73m2); Glucose 131 mg/dL (74-106); Potassium 3.8 mmol/L (3.5-5.1); Sodium 137 mmol/L (136-145); TSH (W/Ref FT4) 1.94 uIU/mL (0.36-3.74); Total Protein 6.7 g/dL (6.4-8.2); Troponin I < 50 ng/L (< or =60)
[2023-12-24 11:42] VITALS: BP 127/94; PULSE 75; RESP 16; O2SAT 98
--- NOTE | 2023-12-24 12:10 | NUR.NOTE ---
Referral faxed to [facility] for recurrent urinary retention, w/ catheter placed. Consulted w/Madison Dorman. Appt at their discretion. Nursing Note:
== END 2023-12-24 13:05 | disposition home or self-care (01) ==
PROVIDERS: Emergency Provider Student in an Organized Health Care Education/Training Program; PCP Family Medicine
DX: N40.1 Benign prostatic hyperplasia with lower urinary tract symptoms (principal); R33.8 Other retention of urine; I48.91 Unspecified atrial fibrillation; I10 Essential (primary) hypertension; E78.5 Hyperlipidemia, unspecified; R01.1 Cardiac murmur, unspecified; Z87.891 Personal history of nicotine dependence
CPT/HCPCS: 51702; 80053; 93005; 99284; 81003; 81015; 83735; 84443; 84484; 85025; 93010

== ENCOUNTER 2023-12-31 09:34 | Outpatient (CLI) | payer MEDICARE, OTHER, SELFPAY ==
--- NOTE | 2023-12-31 09:30 | RT.EKG_ITS ---
APPROVED REPORT Exam: Resting ECG Reason for Exam: baseline Patient Location: O HR:57 bpm ECG Measurements Heart Rate 57 AXIS OH 200 P 59 QRSd 111 QRS -18 QT 436 T 22 QTc 425 Conclusion Sinus rhythm...normal P axis, V-rate 50- 99 Borderline left axis deviation...QRS axis (-15,-29) I have reviewed and interpreted ECG and agree with software generated interpretation.
== END 2023-12-31 09:35 | disposition home or self-care (01) ==
LOC: DI.CARD 09:35
PROVIDERS: PCP Family Medicine; Referring Provider Family Medicine; Visit Provider Internal Medicine Interventional Cardiology
DX: I48.91 Unspecified atrial fibrillation (principal)
CPT/HCPCS: 93010

== ENCOUNTER → 2023-12-31 09:34 | Outpatient (BNVA) | payer MEDICARE, OTHER, SELFPAY | PROVIDERS: PCP Family Medicine; Referring Provider Family Medicine; Visit Provider Internal Medicine Interventional Cardiology | DX: I50.9 Heart failure, unspecified (principal); R53.83 Other fatigue; I48.0 Paroxysmal atrial fibrillation; I10 Essential (primary) hypertension; I48.91 Unspecified atrial fibrillation | CPT/HCPCS: 93005; 99213 ==

== ENCOUNTER → 2024-01-26 01:08 | Outpatient (CLI) | payer MEDICARE, OTHER, SELFPAY ==
--- NOTE | 2024-01-26 08:00 | DI.US_ITS ---
APPROVED REPORT EXAM: Comprehensive 2D, Doppler, and color-flow Echocardiogram Patient Location: Out-Patient Prior Authorization Technician: Ti Durham RDCS (AE) Indications: atrial fibrillation Conclusion Normal left ventricular wall thickness and chamber size. Ejection fraction is 55%. Wall motion is n ormal Normal right ventricular size and function Left atrium is moderately enlarged. Right atrium is mildly dilated Aortic valve is sclerotic with trace regurgitation Thickened mitral leaflets, moderate mitral regurgitation Normal tricuspid valve with moderate regurgitation. Estimated right ventricular systolic pressure is 38 mmHg Ascending aorta measures 3.95 cm Wall motion Left Ventricle The left ventricle is normal size. The left ventricular systolic function is normal. The left ventric ular ejection fraction is within the normal range. There is normal left ventricular wall thickness. T here is normal LV segmental wall motion. There is no ventricular septal defect visualized. LVEF is 55 %. Right Ventricle The right ventricle is normal size. Right ventricular systolic function is grossly normal. Atria Left atrium is moderately dilated. Right atrium is mildly dilated. The interatrial septum is intact w ith no evidence for an atrial septal defect. Aortic Valve The Aortic valve is sclerotic. Aortic valve is trileaflet. There is no aortic valvular stenosis. Trac e aortic regurgitation. Mitral Valve Mitral valve leaflets are thickened. No evidence of mitral valve stenosis. Moderate mitral regurgitat ion. Tricuspid Valve The tricuspid valve is normal in structure. There is no tricuspid valve stenosis. Moderate tricuspid regurgitation. Pulmonic Valve The pulmonary valve is normal in structure. There is no pulmonic valvular stenosis. There is no pulmo moon valvular regurgitation. Great Vessels The aortic root is normal in size. The ascending aorta is moderately dilated. Aortic arch is normal i n caliber. The IVC collapses <50% with inspiration. Pericardium There is no pericardial effusion. 2D Dimensions IVSD d PLAX 0.84 cm M: 0.6-1.2 Ao Root d 2.48 cm M: 3.1 - 3.7 LVPW d PLAX 0.90 cm M: 0.6 - 1.2 Ao Asc Diam d 3.95 cm M: 2.6 - 3.4 LVID d PLAX 4.90 cm M: 4.2 - 5.8 Prox Ao Arch 3.0 cm LVDs 3.47 cm M: 2.5 - 4.0 IVC Diam exp d SLAX 2.8 cm LV EF Teichholz 55.9 % FS 29.22 % LV EDV (Teich) 113.1 mL LV ESV (Teich) 49.9 mL Stroke Vol Index (Teich) 30.98 M-Mode TAPSE 2.36 cm (M/F) >1.7 Auto EF LV EDV A4C 122.5 mL LV EDV A2C 103.9 mL LV EDV BP 112.7 mL LV ESV A4C 57.7 mL LV ESV A2C 47.8 mL LV ESV BP 53.9 mL LVEF(%) A4C 52.9 % LVEF(%) A2C 54.0 % LVEF(%) BP 52.2 % LV SV A4C 64.8 ml LV SV A2C 56.1 ml LV SV BP 58.8 ml LV CO A4C 2.7 L/min LV CO A2C 2.4 L/min LV CO BP 2.6 L/min HR A4C 41.91 BPM HR A2C 43.41 BPM LV EDV Index (BP) LA Volume LA Length A4C 5.0 cm LA Length A2C 5.5 cm LA Area A4C s 15.71 cm2 LA Area A2C s 24.05 cm2 LA Vol A4C A-L 41.49 mL LA Vol A2C A-L 88.60 mL LA Vol Biplane A-L 63.5 mL LA Vol/BSA A4C A-L LA Vol/BSA A2C A-L LA Vol/BSA BP A-L 31.1 mL/m2 LA Vol A4C MOD 39.0 mL LA Vol A2C MOD 84.6 mL LA Vol BP MOD 60.1 mL RA Volume RA Area A4C 13.4 cm2 RA ESV A4C (A-L) 33.1mL RA Vol/BSA A4C A-L RA Length A4C 4.6 cm RA ESV A4C (MOD) 35.6mL LV Diastology MV E' medial 0.072 (>0.07 m/s) MV E Vmax 0.83 (0.4-1.3 m/s) MV E/E' MED 11.55 (<14) MV A Vmax 0.50 (0.4-1.3 m/s) MV E' lateral 0.090 (>0.1 m/s) E/A Ratio 1.7 MV E/E' LAT 9.25 (<14) MV E' Average 0.081 m/s MV E/E'(average) 10.27 Aortic Valve AoV Vmax 1.93 m/s LVOT Vmax 1.19 m/s AoV Peak Grad 48.5 mmHg LVOT Peak Grad 5.6 mmHg AoV Area (Vmax) 1.58 cm2 LVOT VTI 0.295 m AoV VTI 0.479 m LVOT Mean Grad 3.0 mmHg AoV Mean Waldo. 1.33 m/s LVOT SV 75.37 mL AoV Mean Grad 8.1 mmHg LVOT Diam s 1.80 cm AoV Area (VTI) 1.57 cm2 AV Regurg Peak Gr. 82.30 mmHg Velocity Ratio 0.62 AR Decel Gentry 1.2m/sec2 AR DT 3757 msec AR PHT 1090 msec AR Vmax 4.54 m/s Mitral Valve MV DT 187 (160-240 msec) MR PISA Radius 0.46 cm MR Aliasing Velocity 0.30 m/s Pulmonary Valve PV Vmax 1.27 (0.5-1.5 m/s) RVOT Vmax 0.56 m/s PV Peak Grad 6.5 mmHg RVOT Peak Gr. 1.3 mmHg PV Mean Waldo 0.74 m/s RVOT VTI 0.125 m PV Mean Grad 2.6 mmHg RVOT Mean Gr. 0.6 mmHg Tricuspid Valve RA Pressure 8.00 mmHg TR Vmax 2.75 m/s TR Peak Grad 30.1 mmHg RVSP (TR) 38.2 mmHg
== END ==
PROVIDERS: PCP Family Medicine; Visit Provider Internal Medicine Interventional Cardiology
DX: I50.9 Heart failure, unspecified (principal)
CPT/HCPCS: 93306

== ENCOUNTER → 2024-02-18 10:38 | Outpatient (BNVA) | payer MEDICARE, OTHER, SELFPAY | PROVIDERS: PCP Family Medicine; Referring Provider Family Medicine; Visit Provider Internal Medicine Cardiovascular Disease | DX: I48.0 Paroxysmal atrial fibrillation (principal); I10 Essential (primary) hypertension | CPT/HCPCS: 36415; 84153; 99213 ==

== ENCOUNTER 2024-02-18 15:03 | Outpatient (CLI) | payer MEDICARE, OTHER, SELFPAY ==
[2024-02-19 18:03] LABS: PSA, Ultrasensitive 4.3 ng/mL (<= 6.5)
== END 2024-02-18 15:04 | disposition home or self-care (01) ==
LOC: LBO 15:04
PROVIDERS: PCP Family Medicine; Visit Provider Student in an Organized Health Care Education/Training Program
DX: R97.20 Elevated prostate specific antigen [PSA] (principal)
CPT/HCPCS: 36415; 84153

== ENCOUNTER → 2024-03-10 01:09 | Outpatient (CLI) | payer MEDICARE, OTHER, SELFPAY ==
--- NOTE | 2024-03-10 | ETT_ITS ---
APPROVED REPORT Exam: Exercise Treadmill Patient Location: Out-Patient Room/Bed: Stress Nurse: Apolonia Linton RN Ordering Provider:GARLAND MELO, Contact Number: [phone] BMI: 25.82 Baseline Rhythm: Atrial Fibrillation Indications: Chest pain, Medical History Medical History: HTN, HLD, heart murmur, prediabetes, afib Cardiac Medications: Apixaban, finasteride, furosemide, lisinopril, metoprolol succinate, tamsulosin Allergies: NKA Cardiac Risk Factors: HTN, HLD, prediabetes Previous Cardiac Procedures: None Pretest Chest Pain Characteristics: None Exercise History: Physically active Physical Disabilities: None Lung Sounds: Clear to auscultation Heart Sounds: Irregular Stress Test Details Test: Exercise stress testing was performed using a Daniel protocol. Rest Stress HR Resting HR Supine: 108 bpm Max Heart Rate (APMHR): 143 bpm Resting HR Standin bpm Target HR (85% APMHR): 122 bpm Max HR Achieved: 150 bpm % of APMHR: 105 Recovery HR: 101 bpm HR response to stress: Accelerated HR response to stress BP Resting BP Supine: 152/92 mmHg Resting BP Standin/92 mmHg Max BP: 180/92 mmHg Recovery BP: 152/98 mmHg BP response to stress: Normal blood pressure response to stress. ECG Resting ECG: Atrial Fibrillation Ectopy: Occasional PVC's Stress ECG: Atrial Fibrillation ST Change: No significant ST segment changes noted Arrhythmia: Occasional PVC's Recovery ECG: Atrial Fibrillation Recovery ST Change: No significant ST segment changes noted Recovery Arrhythmia: Occasional PVC's, couplets Clinical Reason for Termination: Max HR achieved Stress Symptoms: None Exercise duration: 01 min46 sec Highest Stage Reached: Stage 1: 1.7 mph at 10% grade. Exercise capacity: 4.10 METs Angina Score: None Rate Pressure Product: [id number] Stress ECG Conclusion 1. Resting EKG showed atrial fibrillation, rate 100-110/minute 2. The patient exercised on the Daniel protocol and completed a workload of 4 METS 3. Accelerated heart rate response to exercise. Peak heart rate was >100% of predicted for age 4. There was no electrocardiographic evidence of myocardial ischemia Stress Test Summary STAGE Time (mins) Speed (mph) Grade (%) HR BP SpO2 SYMPTOMS METS Supine 108 152/92 Standing 136 140/92 1 3 1.7 10 146 4.5 1 min recovery 114 180/92 3 min recovery 109 180/88 97 6 min recovery 101 152/98
== END ==
PROVIDERS: PCP Family Medicine; Visit Provider Family Medicine
DX: R07.89 Other chest pain (principal)
CPT/HCPCS: 93016; 93018; 93017

== ENCOUNTER 2024-03-22 10:47 | Outpatient (CLI) | payer MEDICARE, OTHER, SELFPAY ==
[2024-03-22 10:20] LABS: Anion Gap 6.7 mmol/L (3-11); BUN 17 mg/dL (7-18); CO2 31.3 mmol/L (21.0-32.0); CREATININE 1.2 mg/dL (0.70-1.30); Calcium 9.2 mg/dL (8.5-10.1); Chloride 106 mmol/L (98-107); Estimated GFR 62.29 (mL/min/1.73m2); Glucose 159 mg/dL (74-106); Sodium 144 mmol/L (136-145)
== END 2024-03-22 10:48 | disposition home or self-care (01) ==
LOC: LBO 10:51
PROVIDERS: PCP Family Medicine; Visit Provider Physician Assistant
DX: N28.9 Disorder of kidney and ureter, unspecified (principal)
CPT/HCPCS: 36415; 80048

== ENCOUNTER 2024-04-06 15:41 | Emergency (ER) | payer MEDICARE, OTHER, SELFPAY ==
[2024-04-06 15:46] VITALS: BP 153/109; PULSE 51; RESP 18; TEMP 36.7; O2SAT 97
--- NOTE | 2024-04-06 15:51 | ED.GENADUL_ITS ---
Discharge Plan Disposition Patient Disposition: Home Condition: Stable Discharge Details Clinical Impression: Rash Primary Care Provider: Otto Lopez ED Provider: Edison Mcdonald Home Meds and New Rx's Prescriptions: New amoxicillin-pot clavulanate 875-125 mg tablet 1 tab PO BID Qty: 14 0RF clotrimazole 1 % cream 1 applic topical BID 28 Days Qty: 30 0RF Continued furosemide 20 mg tablet 20 mg PO DAILY tamsulosin 0.4 mg capsule 0.8 mg PO DAILY Qty: 180 4RF finasteride 5 mg tablet 5 mg PO DAILY Qty: 90 4RF metoprolol succinate 50 mg tablet extended release 24 hr 50 mg PO DAILY Qty: 90 3RF lisinopril 20 mg tablet 20 mg PO DAILY Eliquis 5 mg tablet 5 mg PO BID atorvastatin 40 mg tablet PO DAILY Patient Comments: TAKE ONE TABLET BY MOUTH EVERY DAY Rx Instructions: unknown dose Discharge Instructions Additional Instructions: You are being treated for a bacterial and fungal infection. Follow-up with your primary care provider within 1 week if not improving If you feel more ill, have high fevers or severe pain return to the emergency department for reevaluation HPI General Mode of arrival: ambulatory . Date/Time Provider Initiated Documentation: 04/06/24 15:46 . Limitations to Documentation: no limitations . Information obtained by: patient . History of Present Illness 78 year old M presents to the emergency department with the chief complaint of Rash rash, described as mild, Patient started experiencing this month(s) (1) and it has been constant. No relieving factors improve symptom(s), No exacerbating factors reported . Patient notes no other symptoms.. Patient did receive the following treatments prior to arrival, none Related Data Home Medications Medication Instructions Recorded Confirmed lisinopril 20 mg tablet 20 mg PO DAILY 09/29/23 04/06/24 tamsulosin 0.4 mg capsule 0.8 mg (2 x 0.4 mg) PO DAILY #180 12/16/23 04/06/24 caps finasteride 5 mg tablet 5 mg PO DAILY #90 tabs 12/22/23 04/06/24 apixaban 5 mg tablet (Eliquis) 5 mg PO BID 12/28/23 04/06/24 furosemide 20 mg tablet 20 mg PO DAILY 12/31/23 04/06/24 metoprolol succinate 50 mg 50 mg PO DAILY #90 tabs 12/31/23 04/06/24 tablet,extended release 24 hr amoxicillin 875 mg-potassium 1 tab PO BID #14 tabs 04/06/24 clavulanate 125 mg tablet atorvastatin 40 mg tablet mg PO DAILY 04/06/24 clotrimazole 1 % topical cream 1 applic topical BID 4 weeks #30 04/06/24 grams Previous Rx's Medication Instructions Recorded tamsulosin 0.4 mg capsule 0.8 mg (2 x 0.4 mg) PO DAILY #180 12/16/23 caps finasteride 5 mg tablet 5 mg PO DAILY #90 tabs 12/22/23 metoprolol succinate 50 mg 50 mg PO DAILY #90 tabs 12/31/23 tablet,extended release 24 hr amoxicillin 875 mg-potassium 1 tab PO BID #14 tabs 04/06/24 clavulanate 125 mg tablet clotrimazole 1 % topical cream 1 applic topical BID 4 weeks #30 04/06/24 grams Allergies Allergy/AdvReac Type Severity Reaction Status Date / Time No Known Allergies Allergy Verified 04/06/24 15:53 General ASHUTOSH: 3 Review of Systems All systems reviewed & are unremarkable except as noted in HPI and below Constitutional Constitutional: Denies chills, Denies fever(s) and Denies weakness Cardiovascular Cardiovascular: Denies chest pain and Denies dyspnea Respiratory Respiratory: Denies cough and Denies dyspnea Gastrointestinal Gastrointestinal: Denies abdominal pain, Denies nausea and Denies vomiting Integumentary/Breasts Skin/Breast: Reports rash Neurologic Neurologic: Denies weakness Psychiatric Psychiatric: Denies depression Exam Const General: no acute distress Orientation: alert HENFL Head: normal to inspection Ears: external ears normal General nose exam: external nose normal Mouth: moist mucous membranes Eyes General: appearance normal, both eyes and all related structures Neck Neck: normal visual inspection Resp Effort & Inspection: normal respiratory effort and able to speak in complete sentences Cardio Rate: regular rate Skin General skin exam: erythema Neuro General: patient alert and patient oriented x3 Extrem General: normal to inspection Psych Mental Status: mental status grossly normal Medical Decision Making 78-year-old male with history of A-fib on apixaban comes in with a rash on his right lower extremity for 1 month. Denies any pain, fevers, leg swelling. Denies any chest pain or difficulty breathing, states he feels well otherwise. He has a 3 x 4 cm area of mild erythema over the mid tibia with some crusting on top. No discharge, no tenderness, no crepitus, there is no leg swelling or calf tenderness. Exam is consistent with likely fungal infection, will treat with topical antifungals and will also cover for possible underlying cellulitis. He is anticoagulated and the leg itself is not swollen so do not feel ultrasound for DVT indicated. 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 (Acute) Jaw pain (Acute) Diverticulosis (Acute) Medical History Hypertension Hyperlipidemia Heart murmur, systolic Tubular adenoma of colon Prediabetes Surgical History History of colonoscopy Family History Other Crohn disease Social History Smoking/Tobacco Use Status: Former Tobacco Use Smoking risk assessment performed?: Yes Alcohol Intake: current Alcohol Intake frequency: a few times a week Alcohol type: wine and hard liquor Drug use: Never Substance use type: does not use Details: quit smoking 1984 Housing: house current occupation: [employer] 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
[2024-04-06 15:56] VITALS: BP 153/109; PULSE 51; RESP 18; TEMP 36.7; O2SAT 97
== END 2024-04-06 16:02 | disposition home or self-care (01) ==
PROVIDERS: Emergency Provider Emergency Medicine; PCP Family Medicine
DX: R21 Rash and other nonspecific skin eruption (principal); I48.91 Unspecified atrial fibrillation; I10 Essential (primary) hypertension; Z79.01 Long term (current) use of anticoagulants; Z87.891 Personal history of nicotine dependence
CPT/HCPCS: 99283

== ENCOUNTER → 2024-06-21 14:01 | Outpatient (BNVA) | payer MEDICARE, OTHER, SELFPAY | PROVIDERS: Visit Provider Urology | DX: R35.1 Nocturia (principal); N40.1 Benign prostatic hyperplasia with lower urinary tract symptoms; N13.8 Other obstructive and reflux uropathy | CPT/HCPCS: 51798; 99213 ==

== ENCOUNTER → 2024-10-18 09:59 | Outpatient (BNVA) | payer MEDICARE, OTHER, SELFPAY | PROVIDERS: PCP Family Medicine; Referring Provider Family Medicine; Visit Provider Urology | DX: N40.1 Benign prostatic hyperplasia with lower urinary tract symptoms (principal); N13.8 Other obstructive and reflux uropathy | CPT/HCPCS: 99213 ==

== ENCOUNTER → 2025-04-25 10:08 | Outpatient (BNVA) | payer MEDICARE, OTHER, SELFPAY | PROVIDERS: Visit Provider Urology | DX: N40.1 Benign prostatic hyperplasia with lower urinary tract symptoms (principal); N13.8 Other obstructive and reflux uropathy | CPT/HCPCS: 99213 ==

== ENCOUNTER → 2025-10-31 10:01 | Outpatient (BNVA) | payer MEDICARE, OTHER, SELFPAY | PROVIDERS: PCP Internal Medicine; Referring Provider Internal Medicine; Visit Provider Urology | DX: N40.1 Benign prostatic hyperplasia with lower urinary tract symptoms (principal); N13.8 Other obstructive and reflux uropathy | CPT/HCPCS: 99213 ==